=== PATIENT | male | born 1970 | race Caucasian/White ===

== ENCOUNTER 2017-04-24 22:41 | Emergency (ER) | payer BC ==
[2017-04-24] MEDS ORDERED: no meds (23:10)
[2017-04-24] MEDS ORDERED: NORCO 5-325 TA1 EACH PO (23:42)
[2017-05-12] MEDS ORDERED: NO HOME MEDICATION (11:11)
== END 2017-04-25 00:40 ==
LOC: EDMED 22:41
DX: T22.211A Burn of second degree of right forearm, initial encounter (principal); T23.231A Burn of second degree of multiple right fingers (nail), not including thumb, initial encounter; T31.0 Burns involving less than 10% of body surface; Z23 Encounter for immunization; X08.8XXA Exposure to other specified smoke, fire and flames, initial encounter; Y92.019 Unspecified place in single-family (private) house as the place of occurrence of the external cause